=== PATIENT | male | born 1970 | race Caucasian/White ===

== ENCOUNTER 2018-01-18 10:57 | Day surgery (SDC) | payer BC ==
[~2018-01-18] VITALS: Ht 170.2 cm; Wt 96.0 kg
[2018-01-18 11:38] VITALS: BP 129/83; PULSE 93; TEMP 97.9
[2018-01-18] MEDS ORDERED: TYLENOL 500MG500 MG PO (12:17)
[2018-01-18 15:08] VITALS: TEMP 98
[2018-01-18 15:40] VITALS: BP 158/74; PULSE 73
[2018-01-18 15:55] VITALS: BP 148/71; PULSE 73
[2018-01-18 16:10] VITALS: BP 130/69; PULSE 84
[2018-01-18] MEDS ORDERED: NORCO 325 MG-51 TAB PO (16:16)
[2018-01-18] MEDS ORDERED: PYRIDIUM 100MG100 MG PO (16:17)
[2018-01-18] MEDS ORDERED: SENOKOT S 50 MG1 TAB PO (16:17)
== END 2018-01-18 16:30 | disposition home or self-care (01) ==
LOC: SDCO 10:57
DX: N20.1 Calculus of ureter (principal); F17.210 Nicotine dependence, cigarettes, uncomplicated; M19.90 Unspecified osteoarthritis, unspecified site; Z80.42 Family history of malignant neoplasm of prostate; Z87.448 Personal history of other diseases of urinary system
CPT/HCPCS: C1769; C2617; J0690; J1100; J1885; J2405; J2704; J3010; J7120